=== PATIENT | female | born 1945 | race Caucasian/White ===

== ENCOUNTER 2022-09-22 13:13 | Emergency (ER) | payer MEDICARE, SELFPAY ==
[2022-09-22 13:21] VITALS: BP 141/66; PULSE 74; RESP 16; TEMP 37.4; O2SAT 98
--- NOTE | 2022-09-22 13:30 | ED.URI ---
HPI - URI/Sore Throat General Chief Complaint: Upper Respiratory Infection Stated Complaint: Poss sinus infection Source: patient and RN notes reviewed History of Present Illness HPI Narrative: 77 yo F presents to urgent are with complaints of sinus pressure, HUNTER, nasal drainage, sore throat, and cough since Tuesday. Pt states she was on a cruise and got back on Tuesday. Denies any fevers, chills, chest pain, SOB, vomiting, or diarrhea. Pt has been taking cough and throat lozenges along with Tylenol. Related Data Home Medications Medication Instructions Recorded Confirmed levothyroxine 88 mcg tablet 88 mcg PO DAILY 09/22/22 09/22/22 lisinopril 10 mg tablet 10 mg PO DAILY 09/22/22 09/22/22 Allergies Allergy/AdvReac Type Severity Reaction Status Date / Time codeine Allergy Mild Unverified 12/04/18 10:05 Review of Systems Review of Systems: Pertinent positives and pertinent negatives per HPI. PMFSH Comments At the time of my signature, I reviewed and agree with the nursing past medical, surgical, social, and family history. There is no relevant family history pertinent to the patient complaint. Exam Narrative: GENERAL: This is a well-nourished, well-developed patient, in no apparent distress. HEAD: normocephalic, atraumatic. EYES: Sclera clear/white. Vision is grossly intact. EARS: External ears normal, auditory canals clear and without drainage, TMs normal without perforation. Hearing grossly intact. NOSE: External nose normal with no obvious nasal discharge, nares without redness, no rhinorrhea. THROAT: Mucous membranes moist, posterior pharynx clear. NECK: Neck supple, non-tender without lymphadenopathy, masses or thyromegaly. CARDIOVASCULAR: Regular rate and rhythm without murmurs, gallops, or rubs. RESPIRATORY: Clear to auscultation. Breath sounds equal bilaterally. No wheezes, rales, or rhonchi. GASTROINTESTINAL: Abdomen soft, non-tender, nondistended. Bowel sounds are active. No hepato-splenomegaly, or palpable masses. No guarding. SKIN: warm, intact with no suspicious lesions or rash, good texture and turgor. NEURO: awake, alert, and oriented to person, place and time. There were no obvious focal neurologic abnormalities. EXTREMITIES: No clubbing, cyanosis, or edema. No joint tenderness, effusion, or edema noted. BACK: Nontender without deformity or crepitus. No flank tenderness. Course Course Level of Care: Express Care Visit Vital Signs Vital signs: Vital Signs Temperature 99.3 F 09/22/22 13:21 Pulse Rate 74 09/22/22 13:21 Respiratory Rate 16 09/22/22 13:21 Blood Pressure 141/66 H 09/22/22 13:21 Pulse Oximetry 98 09/22/22 13:21 Oxygen Delivery Room Air 09/22/22 13:21 Temperature 99.3 F 09/22/22 13:21 Pulse Rate 74 09/22/22 13:21 Respiratory Rate 16 09/22/22 13:21 Blood Pressure 141/66 H 09/22/22 13:21 Pulse Oximetry 98 09/22/22 13:21 Oxygen Delivery Room Air 09/22/22 13:21 Reviewed MDM - URI/Sore Throat MDM Narrative Medical decision making narrative: Rapid strep is negative in the office; however we will send to the lab for confirmation; there is a small percentage chance that it can come back positive; if it is, we will call you in 2-3days; and your prescription will be call in to your pharmacy. However, there is NO indication for antibiotic at this time. -Increase your fluids and Vitamin C. -Oral rinses such as: Salt water gargles and/or may use topical anesthetic (eg. Chloraseptic spray) or lozenges to relieve dryness or throat pain. -Take tylenol and ibuprofen as needed for pain and fever as directed. -Frequent hand washing or hand warp dyeing tender is one of the best ways to prevent spread of infection. -Follow up with primary care provider in 2-3 days if condition is not improving or seek ER visit if your child starts breathing fast/has trouble breathing, is not drinking enough fluids, muffle voice, difficulty opening the mouth or will not wake up
== END 2022-09-22 13:45 | disposition home or self-care (01) ==
PROVIDERS: Emergency Provider Nurse Practitioner Family
DX: J06.9 Acute upper respiratory infection, unspecified (principal); J02.9 Acute pharyngitis, unspecified; I10 Essential (primary) hypertension; E03.9 Hypothyroidism, unspecified
CPT/HCPCS: 87081; 87880; 99203; G0463

== ENCOUNTER 2023-10-16 09:50 | Emergency (ER) | payer MEDICARE, SELFPAY ==
[2023-10-16 09:56] VITALS: BP 142/66; PULSE 91; RESP 16; TEMP 37; O2SAT 99
--- NOTE | 2023-10-16 10:18 | PC.NURSE ---
docent coordinator in progress of consulting sleeping room cleaner.
--- NOTE | 2023-10-16 10:19 | ED.GENADULT ---
HPI - General Adult General Chief complaint: Allergic Reaction Stated complaint: Allergic Recation Source: patient Mode of arrival: ambulatory Limitations: no limitations History of Present Illness HPI narrative: Patient presents for evaluation of multiple concerns. Her first concern is a rash that she has noted to the buttocks, scalp, bilateral inguinal regions and bilateral axillary regions as of yesterday. No new lotions, soaps, detergents, topical products. She has been applying an anti-itch cream with some improvement thereafter. No history of similar symptoms. She is also concerned about some swelling to her upper lip that she noticed today. No difficulty breathing or swelling. She recently had her dose of lisinopril increased from 10 mg daily to 40 mg daily. Related Data Home Medications Medication Instructions Recorded Confirmed levothyroxine 88 mcg tablet 88 mcg PO DAILY 09/22/22 09/22/22 amlodipine 10 mg tablet mg 10/16/23 aspirin 81 mg tablet,delayed mg 10/16/23 release atorvastatin 80 mg tablet mg 10/16/23 clopidogrel 75 mg tablet mg 10/16/23 hydrochlorothiazide 12.5 mg capsule mg 10/16/23 lisinopril 40 mg tablet mg 10/16/23 nortriptyline 25 mg capsule mg 10/16/23 pantoprazole 40 mg tablet,delayed mg PO 10/16/23 release sucralfate 1 gram tablet 10/16/23 Allergies Allergy/AdvReac Type Severity Reaction Status Date / Time codeine AdvReac Mild Nausea and Unverified 10/16/23 09:53 Vomiting Sulfa (Sulfonamide AdvReac Mild Nausea and Verified 10/16/23 09:53 Antibiotics) Vomiting Review of Systems Review of Systems: CONSTITUTIONAL: Denies fever, chills, or sweats. EYES: Denies visual changes, redness, or discharge. ENT: Reports swelling to the upper lip. Denies rhinorrhea, congestion, sore throat, or otalgia. CARDIOVASCULAR: Denies chest pain, palpitations, or edema. RESPIRATORY: Denies cough or dyspnea. GASTROINTESTINAL: Denies abdominal pain, nausea, vomiting, or diarrhea. GENITOURINARY: Denies dysuria or hematuria. SKIN: Reports pruritic rash to the scalp, buttocks, bilateral inguinal regions and bilateral axillary regions MUSCULOSKELETAL: Denies back pain, joint pain, or myalgia. NEUROLOGIC: Denies headache, numbness, dizziness, or weakness. PSYCHIATRIC: Denies anxiety or depression. [facility] Past Medical History Medical History Coronary artery disease Hypertension Surgical History Surgical History H/O heart artery stent Family History Family History Mother Family history non-contributory Social History Social History Substance use: never Living arrangements: alone Gender identity (if verbalized by the patient): Female Spiritual care concerns: No Exam Narrative: GENERAL: Well-appearing, well-nourished, and in no acute distress. HEAD: Normocephalic, atraumatic. EYES: PERRLA and EOMI. ENT: Nares clear, no rhinorrhea or epistaxis. Mucous membranes moist. Trace swelling noted to the upper lip. Oropharynx without tonsillar hypertrophy exudate or other lesions. Bilateral TMs pearly curiel nonbulging NECK: Supple. No adenopathy or masses. No carotid bruits or JVD CHEST: Clear to auscultation. No respiratory distress. No wheezes rales or rhonchi HEART: Regular rate and rhythm. No murmur heard. Normal peripheral pulses. ABDOMEN: Soft, nontender, nondistended, normal active bowel sounds. EXTREMITIES: Normal range of motion. No edema. SKIN: There is some erythematous annular lesions to the buttocks with overlying scaling that her approximately 1 cm in size. There is a scaling erythematous rash to bilateral inguinal regions. Skin of the scalp is dry NEURO: No focal deficits. Alert and oriented x3. PSYCH: Normal mood and
[2023-10-16] MEDS: methylPREDNISolone SOD SUCC 125 MG VIAL IM (10:33)
== END 2023-10-16 11:22 | disposition home or self-care (01) ==
PROVIDERS: Emergency Provider Nurse Practitioner
DX: B35.9 Dermatophytosis, unspecified (principal); T78.3XXA Angioneurotic edema, initial encounter; I25.10 Atherosclerotic heart disease of native coronary artery without angina pectoris; I10 Essential (primary) hypertension; Z95.5 Presence of coronary angioplasty implant and graft
CPT/HCPCS: 96372; 99213; G0463; J2919